=== PATIENT | female | born 1955 | race Caucasian/White ===

== ENCOUNTER 2025-03-04 11:39 | Outpatient (REF) | payer MEDICARE, SELFPAY ==
--- NOTE | 2025-03-04 11:10 | PAPFT_PTH ---
PATIENT: Michelle Concepcion LOC: [facility]#:[id number] AGE/SX: 69/F ROOM: RE03/04/[address]: Lynette Almeida : 1955 BED: DIS: 03/04/2025 SPEC #: [id number] RECD: 03/04/25 18:21 STATUS: RAGINI REQ #: [id number] ANNETTA: 03/04/25 11:[address]: Lynette Almeida DEPT: [facility] Cytology RECD BY: Vinita Edwards ENTERED: 03/04/25 18:21 SP TYPE: PAPFT JUAN DR: Unknown,Unknown Tissues: 1 - CX/ENDOCX FOR PAP SMEARS Procedures: PAP THIN PREP/[facility] Screening Comments: [id number] (UNSATISFACTORY FOR EVALUATION)
[2025-03-04 19:45] LABS: BUN 19 mg/dL (7-18); CREATININE 0.8 mg/dL (0.55-1.02); Cholesterol 200 mg/dL (<200); Estimated GFR 79.71 (mL/min/1.73m2); Glucose 91 mg/dL (74-106); HDL Cholesterol 65 mg/dL (>or=50); Triglyceride 131 mg/dL (<150)
[2025-03-04 19:46] LABS: ALT 28 U/L (14-59); AST 25 U/L (15-37); Albumin 3.6 g/dL (3.4-5.0); Alkaline Phosphatase 112 U/L (46-116); Anion Gap 7.5 mmol/L (3-11); Bilirubin, Total 0.3 mg/dL (0.2-1.0); CO2 30.5 mmol/L (21.0-32.0); Calculated LDL 109 mg/dL (<100); Chloride 103 mmol/L (98-107); Potassium 4.5 mmol/L (3.5-5.1); Sodium 141 mmol/L (136-145); Total Protein 8.2 g/dL (6.4-8.2); Vitamin D 25 Total 46 ng/mL (30-100)
[2025-03-07 09:20] LABS: Hepatitis C Ab w Rflx HCV PCR Negative (Negative)
[2025-03-10 12:47] LABS: Hydrocodone Interpretation Positive.; Hydrocodone by LC-MS/MS 1250 ng/mL (Cutoff: 25); Hydromorphone by LC-MS/MS 1176 ng/mL (Cutoff: 25); Norhydrocodone by LC-MS/MS 3772 ng/mL (Cutoff: 25)
== END 2025-03-04 11:40 | disposition home or self-care (01) ==
LOC: NCHCN 11:39
PROVIDERS: Visit Provider Physician Assistant
DX: E78.5 Hyperlipidemia, unspecified; E55.9 Vitamin D deficiency, unspecified; Z11.51 Encounter for screening for human papillomavirus (HPV); Z01.419 Encounter for gynecological examination (general) (routine) without abnormal findings; R87.618 Other abnormal cytological findings on specimens from cervix uteri
CPT/HCPCS: 80053; 80061; 80361; 82306; 86803; 88142

== ENCOUNTER 2025-06-03 13:53 | Outpatient (REF) | payer MEDICARE, SELFPAY | END 2025-06-03 13:54 | disposition home or self-care (01) | LOC: NCHCN 13:53 | PROVIDERS: Visit Provider Physician Assistant | DX: G89.29 Other chronic pain (principal); Z79.899 Other long term (current) drug therapy | CPT/HCPCS: 80361; 80362; 80365 ==

== ENCOUNTER 2025-09-13 13:34 | Outpatient (REF) | payer MEDICARE, SELFPAY ==
--- NOTE | 2025-09-13 11:20 | PAPFT_PTH ---
PATIENT: Michelle Concepcion LOC: [facility]#:[id number] AGE/SX: 70/F ROOM: RE09/13/[address]: Lynette Almeida : 1955 BED: DIS: 09/13/2025 SPEC #: [id number] RECD: 09/13/25 18:17 STATUS: RAGINI REQ #: [id number] ANNETTA: 09/13/25 11:[address]: Lynette Almeida DEPT: [facility] Cytology RECD BY: Vinita Edwards ENTERED: 09/13/25 18:17 SP TYPE: PAPFT OT DR: Unknown,Unknown Tissues: 1 - CX/ENDOCX FOR PAP SMEARS Procedures: PAP THIN PREP/[facility] Screening HPV DNA PROBE Comments: [id number] (HPV 16 & 18/45)
== END 2025-09-13 13:35 | disposition home or self-care (01) ==
LOC: NCHCN 13:34
PROVIDERS: Visit Provider Physician Assistant
DX: Z12.4 Encounter for screening for malignant neoplasm of cervix (principal)
CPT/HCPCS: 88142; 87624